=== PATIENT | female | born 1980 | race Caucasian/White ===

== ENCOUNTER 2020-05-20 22:23 | Emergency (ER) | payer MEDICAID ==
[~2020-05-20] VITALS: Ht 154.9 cm; Wt 72.7 kg
[2020-05-20 22:28] VITALS: BP 135/76
[2020-05-20] MEDS ORDERED: LACT1CAP60 PO (23:11)
[2020-05-20] MEDS ORDERED: CEPH500C5 PO (23:11)
[2020-05-20] MEDS ORDERED: SULF1TAB49 PO (23:11)
== END 2020-05-20 23:21 | disposition home or self-care (01) ==
LOC: ER 22:23
DX: L02.416 Cutaneous abscess of left lower limb (principal); L03.116 Cellulitis of left lower limb; Z88.5 Allergy status to narcotic agent; Z88.6 Allergy status to analgesic agent; Z79.899 Other long term (current) drug therapy
CPT/HCPCS: 99283